=== PATIENT | male | born 1935 | race Caucasian/White ===

== ENCOUNTER → 2017-02-16 | Outpatient (REF) | payer MEDICARE ==
[~2017-02-16] MED LIST: AMLO10TA2 PO; ASPI1TAB PO; ATEN25TA PO; ATOR40TA PO; CARD2TAB PO; DIOV320T6 PO; K-TA10TA2 PO; METACAP3 PO; METF500T PO; OMEP40CA2 PO; PIOG15TA3 PO; VITA100072 PO
[2017-02-16 12:02] LABS: ALT/SGPT 38 U/L (12-78); ANION GAP 5 MEQ/L (8-16); BLOOD UREA NITROGEN 18 MG/DL (7-18); CALCIUM LEVEL 9.7 MG/DL (8.8-10.2); CARBON DIOXIDE LEVEL 32 MEQ/L (21-32); CHLORIDE LEVEL 104 MEQ/L (98-107); CREATININE FOR GFR 0.98 MG/DL (0.70-1.30); GLOMERULAR FILTRATION RATE > 60.0 (>35); GLUCOSE, FASTING 123 MG/DL (83-110); POTASSIUM SERUM 3.7 MEQ/L (3.5-5.1); SODIUM LEVEL 141 MEQ/L (136-145)
== END ==
LOC: M SFHCCLAY 08:43
PROVIDERS: ATTEND Family Medicine
DX: E11.9 Type 2 diabetes mellitus without complications (principal); I10 Essential (primary) hypertension; E78.2 Mixed hyperlipidemia

== ENCOUNTER → 2017-02-23 | Outpatient (CLI) | payer MEDICARE ==
[~2017-02-23] VITALS: Ht 177.8 cm; Wt 72.6 kg
[~2017-02-23] MED LIST changes: +LIDOCAINE 2% INJ 100 MG/5 ML SDV (FOR ANES.) As Ordered ONE; +NS 1,000 ML IV ONE; +PROPOFOL 200 MG/20 ML VIAL As Ordered ONE
--- NOTE | 2017-02-23 08:01 | ROOR ---
Patient Name: Jorden Mccloud Procedure Date: 02/23/2017 7:32 AM Date of : 1935 Age: 82 Room: [facility] Gender: Male Note Status: Finalized Procedure: Colonoscopy Indications: High risk colon cancer surveillance: Personal history of colonic polyps, Surveillance: Personal history of piecemeal removal of adenoma on last colonoscopy (less than 1 year ago) Providers: Phillip SMALLWOOD MD Referring MD: Reed Barragan MD Requesting Provider: Medicines: Monitored Anesthesia Care Complications: No immediate complications. Procedure: Pre-Anesthesia Assessment: - The heart rate, respiratory rate, oxygen saturations, blood pressure, adequacy of pulmonary ventilation, and response to care were monitored throughout the procedure. The Colonoscope was introduced through the anus and advanced to the cecum, identified by appendiceal orifice and ileocecal valve. The colonoscopy was performed without difficulty. The patient tolerated the procedure well. The quality of the bowel preparation was fair. Findings: The perianal and digital rectal examinations were normal. (EXAM: Complete, PREP: Fair/Adequate) A 4 mm polyp was found in the ileocecal valve. The polyp was sessile. The polyp was removed with a cold snare. Resection and retrieval were complete. A tattoo was seen at the splenic flexure. A post-polypectomy scar was found at the tattoo site. There was no evidence of residual polyp tissue. Multiple medium-mouthed diverticula were found in the sigmoid colon and descending colon. The exam was otherwise without abnormality on direct and retroflexion views. Impression: - Preparation of the colon was fair. - One 4 mm polyp at the ileocecal valve, removed with a cold snare. Resected and retrieved. - A tattoo was seen at the splenic flexure. A post-polypectomy scar was found at the tattoo site. There was no evidence of residual polyp tissue. - Moderate diverticulosis in the sigmoid colon and in the descending colon. - The examination was otherwise normal on direct and retroflexion views. Recommendation: - Repeat colonoscopy in 3 years for surveillance. Phillip Smallwood MD Phillip SMALLWOOD MD 02/23/2017 8:01:15 AM This report has been signed electronically. Number of Addenda: 0 Note Initiated On: 02/23/2017 7:32 AM Estimated Blood Loss: Estimated blood loss: none.
[2017-02-23 08:20] VITALS: BP 110/65
== END ==
LOC: M OPP 06:34
PROVIDERS: ATTEND Internal Medicine Gastroenterology
DX: Z86.010 Personal history of colon polyps (principal); D12.0 Benign neoplasm of cecum; K57.30 Diverticulosis of large intestine without perforation or abscess without bleeding; I10 Essential (primary) hypertension; E11.9 Type 2 diabetes mellitus without complications; E87.5 Hyperkalemia; R60.9 Edema, unspecified; R12 Heartburn; Z79.82 Long term (current) use of aspirin; Z79.84 Long term (current) use of oral hypoglycemic drugs; Z79.899 Other long term (current) drug therapy

== ENCOUNTER → 2018-02-13 | Outpatient (CLI) | payer MEDICARE | LOC: M RAD 16:39 | DX: R41.3 Other amnesia (principal); Z91.81 History of falling; I67.82 Cerebral ischemia | CPT/HCPCS: 70450 ==

== ENCOUNTER → 2018-02-21 | Outpatient (REF) | payer MEDICARE ==
[2018-02-21 12:14] LABS: VITAMIN B12 LEVEL > 2000 PG/ML (247-911)
[2018-02-21 12:28] LABS: ALBUMIN 3.7 GM/DL (3.2-5.2); ALBUMIN/GLOBULIN RATIO 1.19 (1.00-1.93); ALKALINE PHOSPHATASE 82 U/L (45-117); ALT/SGPT 38 U/L (12-78); ANION GAP 11 MEQ/L (8-16); AST/SGOT 28 U/L (7-37); BILIRUBIN,TOTAL 0.6 MG/DL (0.2-1.0); BLOOD UREA NITROGEN 18 MG/DL (7-18); CALCIUM LEVEL 9.1 MG/DL (8.8-10.2); CARBON DIOXIDE LEVEL 28 MEQ/L (21-32); CHLORIDE LEVEL 104 MEQ/L (98-107); GLOMERULAR FILTRATION RATE > 60.0 (>35); GLUCOSE, FASTING 142 MG/DL (70-100); POTASSIUM SERUM 3.4 MEQ/L (3.5-5.1); SODIUM LEVEL 143 MEQ/L (136-145); TOTAL PROTEIN 6.8 GM/DL (6.4-8.2)
[2018-02-21 12:41] LABS: ERYTHROCYTE SEDIMENTATION RATE 35 mm/hr (0-20)
[2018-02-21 12:52] LABS: CREATININE, URINE 76.1 MG/DL; MALB URINE SIEMENS 8.6 MG/L; MAU/CREAT RATIO 11.3 MCG/MG (0.0-30.0)
[2018-02-21 13:42] LABS: ESTIMATED AVERAGE GLUCOSE 148 MG/DL (60-110); HEMOGLOBIN A1c 6.8 %
== END ==
LOC: M SFHCCLAY 08:16
DX: F03.90 Unspecified dementia, unspecified severity, without behavioral disturbance, psychotic disturbance, mood disturbance, and anxiety (principal); I10 Essential (primary) hypertension; E11.42 Type 2 diabetes mellitus with diabetic polyneuropathy
CPT/HCPCS: 84443

== ENCOUNTER → 2018-04-25 | Outpatient (REF) | payer MEDICARE ==
[2018-04-25 18:50] LABS: CREATININE, URINE 92.1 MG/DL; MALB URINE SIEMENS 7.5 MG/L; MAU/CREAT RATIO 8.1 MCG/MG (0.0-30.0)
== END ==
LOC: M SFHCCLAY 11:15
DX: E11.9 Type 2 diabetes mellitus without complications (principal); Z23 Encounter for immunization
CPT/HCPCS: 82043

== ENCOUNTER → 2019-01-04 | Outpatient (REF) | payer MEDICARE ==
[~2019-01-04] MED LIST changes: -AMLO10TA2 PO; +AMLO10TA5 PO; -ASPI1TAB PO; +ASPI81TA26 PO; -ATOR40TA PO; +ATOR40TA75 PO; -LIDOCAINE 2% INJ 100 MG/5 ML SDV (FOR ANES.) As Ordered ONE; -METF500T PO; +METF500T13 PO; -NS 1,000 ML IV ONE; -PIOG15TA3 PO; +PIOG1TAB36 PO; -PROPOFOL 200 MG/20 ML VIAL As Ordered ONE; +VITA100018 PO; -VITA100072 PO
[2019-01-04 12:33] LABS: BASO % 0.7 % (0.0-1.0); EOS # 0.1 10^3/uL (0.0-0.50); HEMATOCRIT 37.2 % (42.0-52.0); HEMOGLOBIN 12.2 g/dl (13.5-17.5); LYMPH # 2.6 10^3/uL (1.5-4.5); LYMPH % 43.6 % (24.0-44.0); MEAN CORPUSCULAR HEMOGLOBIN 30.5 pg (27.0-33.0); MEAN CORPUSCULAR HGB CONC 32.8 g/dl (32.0-36.5); MONO # 0.5 10^3/uL (0.0-0.8); MONO % 7.8 % (0.0-5.0); NEUTROPHILS # 2.8 10^3/uL (1.8-7.7); NEUTROPHILS % 46.7 % (36.0-66.0); PLATELET COUNT, AUTOMATED 253 10^3/uL (150-450); WHITE BLOOD COUNT 6.1 10^3/uL (4.0-10.0)
[2019-01-04 12:48] LABS: ALBUMIN 3.7 GM/DL (3.2-5.2); ALT/SGPT 32 U/L (12-78); BILIRUBIN,TOTAL 0.9 MG/DL (0.2-1.0); BLOOD UREA NITROGEN 25 MG/DL (7-18); CARBON DIOXIDE LEVEL 29 MEQ/L (21-32); CHLORIDE LEVEL 106 MEQ/L (98-107); GLOMERULAR FILTRATION RATE > 60.0 (>35); GLUCOSE, FASTING 148 MG/DL (70-100); POTASSIUM SERUM 3.7 MEQ/L (3.5-5.1); RHEUMATOID FACTOR QUANT < 10.0 IU/ML (<15.0); SODIUM LEVEL 142 MEQ/L (136-145); TOTAL PROTEIN 6.6 GM/DL (6.4-8.2); VITAMIN B12 LEVEL > 2000 PG/ML
[2019-01-04 12:49] LABS: FOLATE > 24.0 NG/ML
[2019-01-04 13:28] LABS: ERYTHROCYTE SEDIMENTATION RATE 25 mm/hr (0-20)
[2019-01-08 10:13] LABS: PTT LUPUS TYPE ANTICOAG SCREEN 0.9 (0-1.2)
[2019-01-08 10:50] LABS: ALBUMIN % 61.6 % (55.8-66.1)
[2019-01-08 10:51] LABS: ALBUMIN 4.07 GM/DL (3.29-5.55); ALPHA-1-GLOBULIN % 4.7 % (2.9-4.9); ALPHA-1-GLOBULINS 0.31 GM/DL (0.17-0.41); ALPHA-2-GLOBULINS 0.83 GM/DL (0.42-0.99); ALPHA-2-GLOBULINS % 12.6 % (7.1-11.8); BETA-1-GLOBULINS 0.47 GM/DL (0.28-0.60); BETA-1-GLOBULINS % 7.1 % (4.7-7.2); BETA-2-GLOBULINS % 4.5 % (3.2-6.5); GAMMA GLOBULIN % 9.5 % (11.1-18.8); GAMMA GLOBULINS 0.63 GM/DL (0.65-1.58)
[2019-01-10 14:51] LABS: ANCA-ATYPICAL <1:20 titer (Neg:<1:20); ANTI DS-DNA AB <1:10 titer (.); ANTINUCLEAR ANTIBODIES DIRECT Negative (Negative); CYTOPLASMIC NEUTROP AB ANCA-C <1:20 titer (Neg:<1:20); PERINUCLEAR AB ANCA-P <1:20 titer (Neg:<1:20); SJOGREN'S ANTI SS-A <0.2 AI (0.0-0.9); SJOGREN'S ANTI SS-B <0.2 AI (0.0-0.9); VITAMIN B1 LEVEL WHOLE BLOOD 115.5 nmol/L (66.5-200.0); VITAMIN E(ALPHA TOCOPHEROL) 14.5 mg/L (9.0-29.0); VITAMIN E(GAMMA TOCOPHEROL) 2.8 mg/L (0.5-4.9)
== END ==
LOC: M LABDRAWC 11:39
PROVIDERS: ATTEND Psychiatry & Neurology Neurology
DX: F09 Unspecified mental disorder due to known physiological condition (principal)

== ENCOUNTER → 2019-01-25 | Outpatient (CLI) | payer MEDICARE ==
--- NOTE | 2019-01-26 06:47 | REP ---
HISTORY: Shoulder pain. COMPARISON: None. The humeral head is subluxed superiorly in the glenohumeral which narrows the subacromial space. There is no acute fracture or dislocation. IMPRESSION: Chronic changes as described above.
== END ==
LOC: M CLY 10:59
PROVIDERS: ATTEND Family Medicine
DX: Q68.8 Other specified congenital musculoskeletal deformities (principal)

== ENCOUNTER → 2019-03-27 | Outpatient (CLI) | payer MEDICARE ==
[~2019-03-27] MED LIST changes: +BICA50TA9 PO; +DONETAB6 PO; +HYDR50TAB PO; +KLOR10TA76 PO; +ROZE8TAB16 PO; +TRAZ-252 PO; +VITAD1000T PO
--- NOTE | 2019-03-27 18:35 | REP ---
MRI RIGHT SHOULDER: TECHNIQUE: Axial T2 fat sat, gradient echo, sagittal oblique T2 fat sat, coronal oblique T1, T2 fat sat. Study is limited due to extensive patient motion. Complete full thickness tears are seen of the supraspinatus and infraspinatus tendons with retraction of the musculotendinous junctions approximately 5 cm. There is associated muscular atrophy of the supraspinatus and infraspinatus. There are partial tears of the subscapularis and teres minor. There are mild hypertrophic degenerative changes of the acromioclavicular joint. Acromion appears to be type 2. Biceps tendon appears torn. It is not seen in the superior aspect of the bicipital groove. It is not seen inserting on to the superior labrum. There is no Hill Sach's deformity. The superior labrum appears diffusely truncated and torn. Otherwise no labral tear is seen. There is no occult fracture. There is a large joint effusion, with fluid extending into the subacromial subdeltoid bursae. There is moderate diffuse chondromalacia of the glenohumeral joint. IMPRESSION: Complete full thickness tears of the supraspinatus and infraspinatus tendons with retraction of the musculotendinous junction approximately 5 cm and associated muscular atrophy. Partial tears of the subscapularis and teres minor. Mild hypertrophic degenerative change of the acromioclavicular joint. Biceps tendon appears torn. Superior labrum appears diffusely truncated. Large joint effusion. Study was limited due to extensive patient motion. Electronically Signed by Adolph Wade MD 03/30/2019 06:33 P
== END ==
LOC: M RAD 13:07
PROVIDERS: ATTEND Orthopaedic Surgery Sports Medicine
DX: M25.511 Pain in right shoulder (principal)

== ENCOUNTER → 2019-04-19 | Outpatient (REF) | payer MEDICARE ==
[2019-04-19 17:07] LABS: ALBUMIN 3.9 GM/DL (3.2-5.2); ALT/SGPT 35 U/L (12-78); BILIRUBIN,TOTAL 0.8 MG/DL (0.2-1.0); BLOOD UREA NITROGEN 27 MG/DL (7-18); CALCIUM LEVEL 8.7 MG/DL (8.8-10.2); CARBON DIOXIDE LEVEL 29 MEQ/L (21-32); CHLORIDE LEVEL 105 MEQ/L (98-107); CHOLESTEROL LEVEL 149 MG/DL (<200); GLOMERULAR FILTRATION RATE > 60.0 (>35); GLUCOSE, FASTING 160 MG/DL (70-100); HDL CHOLESTEROL 56 MG/DL (>40); LDL CHOLESTEROL 57 MG/DL (<100); NON-HDL-C 93 MG/DL; POTASSIUM SERUM 3.7 MEQ/L (3.5-5.1); PROSTATIC SPECIFIC AG MONITOR 0.92 NG/ML (< 4.00); SODIUM LEVEL 141 MEQ/L (136-145); TOTAL PROTEIN 6.4 GM/DL (6.4-8.2); TRIGLYCERIDES LEVEL 180 MG/DL (<150)
[2019-04-19 17:20] LABS: HEMATOCRIT 35.4 % (42.0-52.0); HEMOGLOBIN 11.5 g/dl (13.5-17.5); MEAN CORPUSCULAR HGB CONC 32.5 g/dl (32.0-36.5); MEAN CORPUSCULAR VOLUME 95.4 fl (80.0-96.0); PLATELET COUNT, AUTOMATED 235 10^3/uL (150-450); RED BLOOD COUNT 3.71 10^6/uL (4.30-6.10)
== END ==
LOC: M SFHCCLAY 09:17
PROVIDERS: ATTEND Family Medicine
DX: E11.9 Type 2 diabetes mellitus without complications (principal); I10 Essential (primary) hypertension; E78.2 Mixed hyperlipidemia; C61 Malignant neoplasm of prostate

== ENCOUNTER → 2019-08-01 | Outpatient (REF) | payer MEDICARE ==
[~2019-08-01] MED LIST changes: +CHOL100029 PO; -OMEP40CA2 PO; +OMEP40CA97 PO; -VITAD1000T PO; +XTAN40CA PO
[2019-08-01 16:43] LABS: BLOOD UREA NITROGEN 20 MG/DL (7-18); CALCIUM LEVEL 9.5 MG/DL (8.8-10.2); CARBON DIOXIDE LEVEL 31 MEQ/L (21-32); CHLORIDE LEVEL 103 MEQ/L (98-107); CREATININE FOR GFR 0.89 MG/DL (0.70-1.30); GLOMERULAR FILTRATION RATE > 60.0 (>35); GLUCOSE, FASTING 83 MG/DL (70-100); POTASSIUM SERUM 3.3 MEQ/L (3.5-5.1); SODIUM LEVEL 142 MEQ/L (136-145)
[2019-08-01 17:17] LABS: HEMOGLOBIN A1c 6.8 %
== END ==
LOC: M SFHCCLAY 10:06
PROVIDERS: ATTEND Family Medicine
DX: I10 Essential (primary) hypertension (principal); E11.42 Type 2 diabetes mellitus with diabetic polyneuropathy
CPT/HCPCS: 80048; 83036; G0463

== ENCOUNTER → 2019-10-08 | Outpatient (REF) | payer MEDICARE ==
[2019-10-08 12:18] LABS: BASO % 0.6 % (0.0-1.0); EOS % 0.5 % (0.0-3.0); HEMATOCRIT 36.7 % (42.0-52.0); HEMOGLOBIN 11.2 g/dl (13.5-17.5); LYMPH % 30.2 % (24.0-44.0); MEAN CORPUSCULAR HGB CONC 30.5 g/dl (32.0-36.5); MEAN CORPUSCULAR VOLUME 98.4 fl (80.0-96.0); MONO # 0.5 10^3/uL (0.0-0.8); MONO % 8.3 % (0.0-5.0); NEUTROPHILS # 3.9 10^3/uL (1.5-8.5); NEUTROPHILS % 59.8 % (36.0-66.0); PLATELET COUNT, AUTOMATED 228 10^3/uL (150-450); RED BLOOD COUNT 3.73 10^6/uL (4.30-6.10); WHITE BLOOD COUNT 6.5 10^3/uL (4.0-10.0)
[2019-10-08 12:19] LABS: ALBUMIN 3.7 GM/DL (3.2-5.2); ALT/SGPT 30 U/L (12-78); BILIRUBIN,TOTAL 0.7 MG/DL (0.2-1.0); BLOOD UREA NITROGEN 27 MG/DL (7-18); CALCIUM LEVEL 9.1 MG/DL (8.8-10.2); CARBON DIOXIDE LEVEL 30 MEQ/L (21-32); CHLORIDE LEVEL 104 MEQ/L (98-107); CREATININE FOR GFR 1.07 MG/DL (0.70-1.30); GLOMERULAR FILTRATION RATE > 60.0 (>35); GLUCOSE, FASTING 192 MG/DL (70-100); POTASSIUM SERUM 4.2 MEQ/L (3.5-5.1); PROSTATIC SPECIFIC AG MONITOR 5.56 NG/ML (< 4.00); SODIUM LEVEL 141 MEQ/L (136-145); TOTAL PROTEIN 6.4 GM/DL (6.4-8.2)
== END ==
LOC: M LABDRAWC 11:34
PROVIDERS: ATTEND Internal Medicine Medical Oncology
DX: C61 Malignant neoplasm of prostate (principal)

== ENCOUNTER → 2019-11-12 | Outpatient (REF) | payer MEDICARE ==
[~2019-11-12] MED LIST changes: +CASO50TA5 PO; +D 10TAB2 PO; +MEMA10TA19 PO
[2019-11-12 18:09] LABS: HEMOGLOBIN A1c 5.9 %
== END ==
LOC: M SFHCCLAY 10:17
PROVIDERS: ATTEND Family Medicine
DX: E11.42 Type 2 diabetes mellitus with diabetic polyneuropathy (principal)
CPT/HCPCS: 83036; G0463

== ENCOUNTER → 2019-11-25 | Outpatient (CLI) | payer MEDICARE ==
--- NOTE | 2019-11-25 12:15 | REP ---
CHEST, TWO VIEWS: COMPARISON: 02/28/2013. There is no evidence of acute infiltrate. No pleural effusion is seen. The heart is normal in size. The mediastinal silhouette is unremarkable. The visualized osseous structures are intact. There is mild calcification of the thoracic aorta. There are degenerative changes of the spine. There is an old right 9th rib fracture again seen. IMPRESSION: No acute pulmonary disease. Electronically Signed by Adolph Wade MD 11/25/2019 06:06 P
== END ==
LOC: M CLY 11:31
PROVIDERS: ATTEND Physician Assistant
DX: J22 Unspecified acute lower respiratory infection (principal)
CPT/HCPCS: 71046; G0463

== ENCOUNTER → 2019-12-19 | Outpatient (REF) | payer MEDICARE ==
[2019-12-19 16:09] LABS: BASO % 0.6 % (0.0-1.0); EOS # 0.1 10^3/uL (0.0-0.5); EOS % 2.2 % (0.0-3.0); HEMATOCRIT 35.8 % (42.0-52.0); HEMOGLOBIN 11.6 g/dl (13.5-17.5); LYMPH # 2.3 10^3/uL (1.5-5.0); LYMPH % 36.8 % (24.0-44.0); MEAN CORPUSCULAR HEMOGLOBIN 30.7 pg (27.0-33.0); MEAN CORPUSCULAR HGB CONC 32.4 g/dl (32.0-36.5); MEAN CORPUSCULAR VOLUME 94.7 fl (80.0-96.0); MONO # 0.6 10^3/uL (0.0-0.8); MONO % 9.1 % (0.0-5.0); NEUTROPHILS # 3.2 10^3/uL (1.5-8.5); NEUTROPHILS % 50.8 % (36.0-66.0); PLATELET COUNT, AUTOMATED 242 10^3/uL (150-450); RED BLOOD COUNT 3.78 10^6/uL (4.30-6.10); WHITE BLOOD COUNT 6.2 10^3/uL (4.0-10.0)
[2019-12-19 16:18] LABS: ALBUMIN 3.7 GM/DL (3.2-5.2); ALT/SGPT 34 U/L (12-78); BILIRUBIN,TOTAL 0.6 MG/DL (0.2-1.0); BLOOD UREA NITROGEN 25 MG/DL (7-18); CALCIUM LEVEL 9.3 MG/DL (8.8-10.2); CARBON DIOXIDE LEVEL 30 MEQ/L (21-32); CHLORIDE LEVEL 105 MEQ/L (98-107); CREATININE FOR GFR 0.98 MG/DL (0.70-1.30); GLOMERULAR FILTRATION RATE > 60.0 (>35); GLUCOSE, FASTING 126 MG/DL (70-100); POTASSIUM SERUM 3.7 MEQ/L (3.5-5.1); SODIUM LEVEL 142 MEQ/L (136-145); TOTAL PROTEIN 6.9 GM/DL (6.4-8.2)
[2019-12-19 16:34] LABS: TESTOSTERONE 12 NG/DL (241-827)
== END ==
LOC: M LABDRAWC 15:57
PROVIDERS: ATTEND Internal Medicine Medical Oncology
DX: C61 Malignant neoplasm of prostate (principal)

== ENCOUNTER → 2020-02-20 | Outpatient (REF) | payer MEDICARE | LOC: M SFHCCLAY 11:02 | PROVIDERS: ATTEND Family Medicine | DX: C61 Malignant neoplasm of prostate (principal) | CPT/HCPCS: 84153; G0463 ==

== ENCOUNTER → 2020-03-11 | Outpatient (REF) | payer MEDICARE ==
[2020-03-11 11:39] LABS: BLOOD UREA NITROGEN 24 MG/DL (7-18); CALCIUM LEVEL 8.9 MG/DL (8.8-10.2); CARBON DIOXIDE LEVEL 28 MEQ/L (21-32); CHLORIDE LEVEL 108 MEQ/L (98-107); CREATININE FOR GFR 1.15 MG/DL (0.70-1.30); GLOMERULAR FILTRATION RATE > 60.0 (>35); GLUCOSE, FASTING 127 MG/DL (70-100); POTASSIUM SERUM 3.4 MEQ/L (3.5-5.1); SODIUM LEVEL 144 MEQ/L (136-145)
[2020-03-11 11:40] LABS: HEMATOCRIT 33.5 % (42.0-52.0); MEAN CORPUSCULAR HEMOGLOBIN 30.6 pg (27.0-33.0); MEAN CORPUSCULAR HGB CONC 32.8 g/dl (32.0-36.5); MEAN CORPUSCULAR VOLUME 93.3 fl (80.0-96.0); PLATELET COUNT, AUTOMATED 208 10^3/uL (150-450); RED BLOOD COUNT 3.59 10^6/uL (4.30-6.10); WHITE BLOOD COUNT 4.6 10^3/uL (4.0-10.0)
[2020-03-11 15:22] LABS: HEMOGLOBIN A1c 6.6 %
== END ==
LOC: M SFHCCLAY 07:38
PROVIDERS: ATTEND Family Medicine
DX: E11.9 Type 2 diabetes mellitus without complications (principal)

== ENCOUNTER → 2020-03-17 | Outpatient (REF) | payer MEDICARE ==
[~2020-03-17] MED LIST changes: -AMLO10TA5 PO; +AMLO1TAB25 PO
[2020-03-17 11:35] LABS: BASO % 0.6 % (0.0-1.0); EOS % 0.8 % (0.0-3.0); HEMATOCRIT 35.4 % (42.0-52.0); HEMOGLOBIN 11.5 g/dl (13.5-17.5); LYMPH # 1.3 10^3/uL (1.5-5.0); LYMPH % 24.7 % (24.0-44.0); MEAN CORPUSCULAR HEMOGLOBIN 30.7 pg (27.0-33.0); MEAN CORPUSCULAR HGB CONC 32.5 g/dl (32.0-36.5); MEAN CORPUSCULAR VOLUME 94.7 fl (80.0-96.0); MONO # 0.5 10^3/uL (0.0-0.8); MONO % 10.3 % (0.0-5.0); NEUTROPHILS # 3.2 10^3/uL (1.5-8.5); NEUTROPHILS % 63.2 % (36.0-66.0); PLATELET COUNT, AUTOMATED 230 10^3/uL (150-450); RED BLOOD COUNT 3.74 10^6/uL (4.30-6.10); WHITE BLOOD COUNT 5.1 10^3/uL (4.0-10.0)
[2020-03-17 11:51] LABS: ALBUMIN 3.8 GM/DL (3.2-5.2); ALT/SGPT 35 U/L (12-78); BILIRUBIN,TOTAL 0.7 MG/DL (0.2-1.0); BLOOD UREA NITROGEN 22 MG/DL (7-18); CALCIUM LEVEL 8.4 MG/DL (8.8-10.2); CARBON DIOXIDE LEVEL 28 MEQ/L (21-32); CHLORIDE LEVEL 107 MEQ/L (98-107); CREATININE FOR GFR 1.14 MG/DL (0.70-1.30); GLOMERULAR FILTRATION RATE > 60.0 (>35); GLUCOSE, FASTING 119 MG/DL (70-100); POTASSIUM SERUM 3.7 MEQ/L (3.5-5.1); SODIUM LEVEL 139 MEQ/L (136-145); TOTAL PROTEIN 6.8 GM/DL (6.4-8.2)
== END ==
LOC: M LABDRAWC 11:08
PROVIDERS: ATTEND Internal Medicine Medical Oncology
DX: R97.20 Elevated prostate specific antigen [PSA] (principal)

== ENCOUNTER → 2020-04-28 | Outpatient (REF) | payer MEDICARE | LOC: M LAB REF 19:18 | PROVIDERS: ATTEND Dermatology | DX: D04.30 Carcinoma in situ of skin of unspecified part of face (principal) ==

== ENCOUNTER → 2020-05-19 | Outpatient (REF) | payer MEDICARE ==
[2020-05-19 16:55] LABS: HEMATOCRIT 35.5 % (42.0-52.0); HEMOGLOBIN 11.4 g/dl (13.5-17.5); MEAN CORPUSCULAR HEMOGLOBIN 30.3 pg (27.0-33.0); MEAN CORPUSCULAR HGB CONC 32.1 g/dl (32.0-36.5); MEAN CORPUSCULAR VOLUME 94.4 fl (80.0-96.0); PLATELET COUNT, AUTOMATED 225 10^3/uL (150-450); RED BLOOD COUNT 3.76 10^6/uL (4.30-6.10)
[2020-05-19 18:01] LABS: ALBUMIN 3.9 GM/DL (3.2-5.2); ALT/SGPT 35 U/L (12-78); BILIRUBIN,TOTAL 0.6 MG/DL (0.2-1.0); BLOOD UREA NITROGEN 20 MG/DL (7-18); CALCIUM LEVEL 9.9 MG/DL (8.8-10.2); CARBON DIOXIDE LEVEL 30 MEQ/L (21-32); CHLORIDE LEVEL 104 MEQ/L (98-107); CREATININE FOR GFR 1.09 MG/DL (0.70-1.30); GLOMERULAR FILTRATION RATE > 60.0 (>35); GLUCOSE, FASTING 120 MG/DL (70-100); SODIUM LEVEL 139 MEQ/L (136-145); TOTAL PROTEIN 6.9 GM/DL (6.4-8.2)
[2020-05-19 18:55] LABS: HEMOGLOBIN A1c 6.1 %
== END ==
LOC: M LABDRAWC 08:35
PROVIDERS: ATTEND Family Medicine
DX: E11.9 Type 2 diabetes mellitus without complications (principal); I10 Essential (primary) hypertension; C79.51 Secondary malignant neoplasm of bone
CPT/HCPCS: 36415; 80053; 83036; 84153; 84443; 85027; G0463

== ENCOUNTER → 2020-05-22 | Outpatient (REF) | payer MEDICARE | LOC: M LAB REF 16:22 | PROVIDERS: ATTEND Dermatology | DX: L90.5 Scar conditions and fibrosis of skin (principal) ==

== ENCOUNTER → 2020-08-21 | Outpatient (REF) | payer MEDICARE ==
[2020-08-21 11:57] LABS: BASO % 0.4 % (0.0-1.0); EOS # 0.1 10^3/uL (0.0-0.5); EOS % 1.3 % (0.0-3.0); HEMATOCRIT 37.6 % (42.0-52.0); HEMOGLOBIN 11.9 g/dl (13.5-17.5); LYMPH # 1.8 10^3/uL (1.5-5.0); LYMPH % 34.3 % (24.0-44.0); MEAN CORPUSCULAR HEMOGLOBIN 30.4 pg (27.0-33.0); MEAN CORPUSCULAR HGB CONC 31.6 g/dl (32.0-36.5); MEAN CORPUSCULAR VOLUME 96.2 fl (80.0-96.0); MONO # 0.5 10^3/uL (0.0-0.8); MONO % 9.7 % (0.0-5.0); NEUTROPHILS # 2.9 10^3/uL (1.5-8.5); NEUTROPHILS % 53.9 % (36.0-66.0); PLATELET COUNT, AUTOMATED 219 10^3/uL (150-450); RED BLOOD COUNT 3.91 10^6/uL (4.30-6.10); WHITE BLOOD COUNT 5.4 10^3/uL (4.0-10.0)
[2020-08-21 12:27] LABS: ALBUMIN 3.4 GM/DL (3.2-5.2); ALT/SGPT 28 U/L (12-78); BILIRUBIN,TOTAL 0.8 MG/DL (0.2-1.0); BLOOD UREA NITROGEN 19 MG/DL (7-18); CALCIUM LEVEL 8.8 MG/DL (8.8-10.2); CARBON DIOXIDE LEVEL 30 MEQ/L (21-32); CHLORIDE LEVEL 105 MEQ/L (98-107); CREATININE FOR GFR 0.85 MG/DL (0.70-1.30); GLOMERULAR FILTRATION RATE > 60.0 (>35); GLUCOSE, FASTING 142 MG/DL (70-100); POTASSIUM SERUM 3.7 MEQ/L (3.5-5.1); PROSTATIC SPECIFIC AG MONITOR 4.97 NG/ML (< 4.00); SODIUM LEVEL 140 MEQ/L (136-145); TOTAL PROTEIN 6.4 GM/DL (6.4-8.2)
== END ==
LOC: M LABDRAWC 11:21
PROVIDERS: ATTEND Specialist
DX: C61 Malignant neoplasm of prostate (principal); C79.51 Secondary malignant neoplasm of bone

== ENCOUNTER → 2020-09-08 | Outpatient (CLI) | payer SELFPAY | LOC: M LABSMTC 13:43 | PROVIDERS: ATTEND Pediatrics | DX: Z20.828 Contact with and (suspected) exposure to other viral communicable diseases (principal) ==

== ENCOUNTER → 2020-11-13 | Outpatient (REF) | payer MEDICARE ==
[2020-11-13 11:47] LABS: HEMOGLOBIN A1c 5.6 %
== END ==
LOC: M SFHCCLAY 08:11
PROVIDERS: ATTEND Family Medicine
DX: E11.42 Type 2 diabetes mellitus with diabetic polyneuropathy (principal)

== ENCOUNTER → 2021-04-21 | Outpatient (REF) | payer MEDICARE ==
[~2021-04-21] MED LIST changes: +FLOM0.4C39 PO; +GLYCCAP PO; +LOSA100T50 PO; +LUPR45IN IM; +NOXI1TAB PO; +OMEP40CA4 PO; -OMEP40CA97 PO
[2021-04-21 12:23] LABS: BLOOD UREA NITROGEN 30 MG/DL (7-18); CALCIUM LEVEL 9.2 MG/DL (8.8-10.2); CARBON DIOXIDE LEVEL 30 MEQ/L (21-32); CHLORIDE LEVEL 105 MEQ/L (98-107); CREATININE FOR GFR 1.13 MG/DL (0.70-1.30); GLOMERULAR FILTRATION RATE > 60.0 (>35); GLUCOSE, FASTING 121 MG/DL (70-100); POTASSIUM SERUM 3.9 MEQ/L (3.5-5.1); SODIUM LEVEL 141 MEQ/L (136-145)
== END ==
LOC: M SFHCCLAY 07:29
PROVIDERS: ATTEND Family Medicine
DX: I10 Essential (primary) hypertension (principal)

== ENCOUNTER → 2021-05-06 | Outpatient (REF) | payer MEDICARE ==
[2021-05-06 12:08] LABS: BASO % 0.5 % (0.0-1.0); EOS # 0.1 10^3/uL (0.0-0.5); EOS % 1.7 % (0.0-3.0); HEMATOCRIT 38.1 % (42.0-52.0); HEMOGLOBIN 12.3 g/dl (13.5-17.5); LYMPH # 2.6 10^3/uL (1.5-5.0); LYMPH % 43.6 % (24.0-44.0); MEAN CORPUSCULAR HEMOGLOBIN 31.5 pg (27.0-33.0); MEAN CORPUSCULAR HGB CONC 32.3 g/dl (32.0-36.5); MEAN CORPUSCULAR VOLUME 97.4 fl (80.0-96.0); MONO # 0.5 10^3/uL (0.0-0.8); MONO % 8.5 % (2.0-8.0); NEUTROPHILS # 2.7 10^3/uL (1.5-8.5); NEUTROPHILS % 45.2 % (36.0-66.0); PLATELET COUNT, AUTOMATED 236 10^3/uL (150-450); RED BLOOD COUNT 3.91 10^6/uL (4.30-6.10)
[2021-05-06 12:42] LABS: ALBUMIN 3.3 GM/DL (3.2-5.2); ALT/SGPT 29 U/L (12-78); BLOOD UREA NITROGEN 33 MG/DL (7-18); CALCIUM LEVEL 9.2 MG/DL (8.8-10.2); CARBON DIOXIDE LEVEL 28 MEQ/L (21-32); CHLORIDE LEVEL 106 MEQ/L (98-107); GLOMERULAR FILTRATION RATE > 60.0 (>35); GLUCOSE, FASTING 122 MG/DL (70-100); POTASSIUM SERUM 3.9 MEQ/L (3.5-5.1); SODIUM LEVEL 140 MEQ/L (136-145); TOTAL PROTEIN 6.6 GM/DL (6.4-8.2)
== END ==
LOC: M LABDRAWC 11:22
PROVIDERS: ATTEND Specialist
DX: C61 Malignant neoplasm of prostate (principal)

== ENCOUNTER → 2021-05-06 | Outpatient (REF) | payer MEDICARE ==
[2021-05-06 12:33] LABS: BLOOD UREA NITROGEN 33 MG/DL (7-18); CALCIUM LEVEL 9.5 MG/DL (8.8-10.2); CARBON DIOXIDE LEVEL 27 MEQ/L (21-32); CHLORIDE LEVEL 107 MEQ/L (98-107); CREATININE FOR GFR 1.03 MG/DL (0.70-1.30); GLOMERULAR FILTRATION RATE > 60.0 (>35); GLUCOSE, FASTING 124 MG/DL (70-100); POTASSIUM SERUM 3.8 MEQ/L (3.5-5.1); SODIUM LEVEL 141 MEQ/L (136-145)
[2021-05-06 17:31] LABS: HEMOGLOBIN A1c 6.3 %
== END ==
LOC: M SFHCCLAY 08:06
PROVIDERS: ATTEND Family Medicine
DX: I10 Essential (primary) hypertension (principal); E11.42 Type 2 diabetes mellitus with diabetic polyneuropathy

== ENCOUNTER → 2021-07-08 | Outpatient (CLI) | payer MEDICARE ==
[~2021-07-08] MED LIST changes: +FURO20TA2; -KLOR10TA76 PO; +LOPE1TAB PO; +MIRT-62; +OXYC1TAB23 PO; +POTA-136 PO; +PRED5EL PO; +PRED5TA PO; +SPIR1TAB34; +ZYTI250T PO
--- NOTE | 2021-07-08 19:36 | REPVR ---
PROCEDURE INFORMATION: Exam: MR Thoracic Spine Without and With Contrast Exam date and time: 07/08/2021 4:45 PM Age: 86 years old Clinical indication: Condition or disease; Other: Prostate CA; Additional info: Prostate cancer TECHNIQUE: Imaging protocol: Multiplanar magnetic resonance images of the thoracic spine without and with contrast. Contrast material: PROHANCE; Contrast volume: 6 ml; Contrast route: INTRAVENOUS (IV); COMPARISON: CR CHEST 2 VIEW 11/25/2019 11:37 AM FINDINGS: Diffusely scattered enhancing lesions though predominantly sclerotic lesions throughout the visualized bones, compatible with diffuse osseous metastatic disease. Thoracic vertebral body heights are intact. No cord compression. No abnormal cord signal. Thoracic kyphosis is preserved. Thoracic disc space heights are unremarkable. Soft tissues are unremarkable. IMPRESSION: Diffuse osseous metastatic disease. Electronically signed by: Jarocho De On 07/08/2021 19:35:57 PM
--- NOTE | 2021-07-08 19:39 | REPVR ---
PROCEDURE INFORMATION: Exam: MR Lumbar Spine Without and With Contrast Exam date and time: 07/08/2021 4:44 PM Age: 86 years old Clinical indication: Condition or disease; Other: Prostate CA; Additional info: Prostate CA w/ back pain ? mets TECHNIQUE: Imaging protocol: Multiplanar magnetic resonance images of the lumbar spine without and with intravenous contrast. Contrast material: PROHANCE; Contrast volume: 6 ml; Contrast route: INTRAVENOUS (IV); COMPARISON: No relevant prior studies available. FINDINGS: Diffusely scattered enhancing lesions though predominantly sclerotic lesions throughout the visualized bones, compatible with diffuse osseous metastatic disease. Lumbar vertebral body heights are intact. 0.8 cm grade 1 anterolisthesis of L5 on S1. No cord compression. No abnormal cord signal. Conus medullaris terminates at the L1 level. Paravertebral soft tissues are unremarkable. Left-sided extrarenal pelvis versus hydronephrosis. L1-L2: Slight broad-based disc bulge without significant canal or foraminal narrowing. L2-L3: No significant canal or foraminal narrowing. L3-L4: Facet hypertrophy and right lateral disc protrusion cause mild to moderate right foraminal narrowing. Mild canal narrowing. L4-L5: Facet hypertrophy causes mild left foraminal narrowing. No significant canal narrowing. L5-S1: Anterolisthesis causes mild bilateral foraminal narrowing. No significant canal narrowing. IMPRESSION: 1. Diffuse osseous metastatic disease. 2. Spondylotic changes of the lumbar spine, as above. 3. Left-sided extrarenal pelvis versus hydronephrosis. Correlate with dedicated renal imaging. Electronically signed by: Jarocho De On 07/08/2021 19:39:03 PM
== END ==
LOC: M RAD 15:41
PROVIDERS: ATTEND Specialist
DX: C79.51 Secondary malignant neoplasm of bone (principal); M54.89 Other dorsalgia; C61 Malignant neoplasm of prostate

== ENCOUNTER → 2021-07-20 | Outpatient (CLI) | payer MEDICARE ==
[~2021-07-20] MED LIST changes: +OXYC-517 PO; +OXYC1CAP PO
--- NOTE | 2021-07-20 10:11 | REP ---
INDICATION: HYDROURETER. COMPARISON: None. TECHNIQUE: Real-time sonographic evaluation of the kidneys with Doppler FINDINGS: Multiple ultrasonographic images of the right kidney show the right kidney to measure 10.3 x 5.2 x 4.6 cm. The renal cortical echotexture is unremarkable. There is marked renal cortical thinning. There are no masses. There is good corticomedullary differentiation. There is no hydronephrosis. There are no perinephric fluid collections. Multiple ultrasonographic images of the left kidney show the left kidney to measure 11.7 x 5.8 x 5.6 cm. The renal cortical echotexture is unremarkable. There is marked renal cortical thinning. There are no masses. There is good corticomedullary differentiation. There is moderate hydronephrosis. There are no perinephric fluid collections. When scanning the right kidney numerous focal hypo echogenic foci are seen throughout the imaged portion of the liver. IMPRESSION: 1. Likely bilateral age-related renal cortical atrophic change. Medical renal disease cannot be ruled out. 2. There is moderate left-sided hydronephrosis. 3. Abnormal appearing liver. The finding suggests hepatic metastasis. This should be correlated clinically with appropriate follow-up. <Electronically signed by Enrrique Urban > 07/20/21 1007
== END ==
LOC: M RAD 08:08
PROVIDERS: ATTEND Family Medicine
DX: N13.4 Hydroureter (principal)

== ENCOUNTER → 2021-07-20 | Outpatient (CLI) | payer MEDICARE ==
[2021-07-20 15:54] LABS: BASO % 0.3 % (0.0-1.0); EOS % 0.3 % (0.0-3.0); HEMATOCRIT 32.8 % (42.0-52.0); HEMOGLOBIN 10.6 g/dl (13.5-17.5); LYMPH % 25.2 % (24.0-44.0); MEAN CORPUSCULAR HEMOGLOBIN 31.7 pg (27.0-33.0); MEAN CORPUSCULAR HGB CONC 32.3 g/dl (32.0-36.5); MEAN CORPUSCULAR VOLUME 98.2 fl (80.0-96.0); MONO # 0.6 10^3/uL (0.0-0.8); MONO % 7.5 % (2.0-8.0); NEUTROPHILS # 5.1 10^3/uL (1.5-8.5); NEUTROPHILS % 65.8 % (36.0-66.0); PLATELET COUNT, AUTOMATED 153 10^3/uL (150-450); RED BLOOD COUNT 3.34 10^6/uL (4.30-6.10); WHITE BLOOD COUNT 7.8 10^3/uL (4.0-10.0)
--- NOTE | 2021-07-20 15:58 | RADONC.CN ---
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 He has progressed through multiple lines of androgen manipulation and is seen today for consideration of xofigo due to continued PSA progression on zytiga. Diagnosis/Treatment History Oncologic History Per Dr. Bettencourt's recent note: Current diagnosis: Castrate sensitive bone metastatic prostate cancer on single agent leuprolide. Rising and falling PSA.. Progressive dementia Treatment history: 2006 diagnosis of prostate cancer treated with EBRT. [place] 3+4=7; PSA 6.5, 1 year leuprolide to adjuvant treatment PSA decreased to 0.[address] until 2011. 2011 PSA to 5.6; biopsy negative, bone scan, CTs negative. Leuprolide resumed 2011, PSA goes from 5.6 to 0.1. Rising PSA [id number]. 2019 low back pain, MRI bone scan CT with skeletal metastases. No lymphadenopathy. PSA 0.13 on 06/28/2018; two bone marrow biopsies inconclusive. Leuprolide continued. 11/12/2018 PSA 0.715. 11/19/2018 seen at [facility], Dr. Coppola who recommended continue Lupron. 09/26/2018 evaluation at [facility] in [place]. Recommendation was to continue current therapy follow PSA, if evidence of castrate resistant consider total androgen blockade with either Casodex, Xtandi, or Zytiga. Dr. Jaden Woods was the attending at [facility]. He recommended the patient has followup with the dentist Dr. Block for potential tooth extraction. This could be followed by start of Xgeva and continue followup with Dr. Graf of urology for Lupron. 10/03/2018 DEXA with normal T-scores. 01/17/2019 MRI of lumbar spine without contrast, [facility] showed scattered metastatic lesions also seen on prior MRI of April 2018 which were much less conspicuous on current exam presumably responding to therapy. Severe osteoarthritic changes at L5-S1, severe foraminal narrowing bilaterally at S1, also a unilateral pars defect on the left. MRI of spine from cervical down to lumbar 04/21/2020. Extensive involvement with metastatic prostate carcinoma. Progression compared to MRI done on 03/25/2019 started on Xtandi in May 2020 because of a rising PSA and Casodex was stopped. Lupron and denosumab were started in May 2020. PSA went down from 14.6-->3.96. PSA is 4.86 as of 02/10/2021. Xgeva every 3 months start in February 2021. PSA has increased to 15.80 from 4.86 as of 05/10/2021, Zytiga was started. Interval History Jorden is here with his supportive son. Jorden has dementia but still attends to [employer]. He has pain in the back, aching constant. Responds to oxycodone. Also has neck pain and pain in his hands. Uses a walker for ambulation. Past Medical History: HTN DMII CKD HPL Dementia Past Surgical History: Skin cancer removals Family History: Mother unknown cancer Sister unknown cancer Social History: Never smoker Past drinker Allergies / Meds Allergies: Coded Allergies: No Known Allergies (Unverified , 02/19/19) Home Meds Active Scripts Oxycodone HCl (Oxycodone HCl) 5 Mg Tablet, 5 MG PO 4-6 hrs PRN for pain MDD 6 for 30 Days, #60 TAB Prov:LAUREN BETTENCOURT MD 07/19/21 Oxycodone HCl (Oxycodone Hydrochloride) 5 Mg Capsule, 5 MG PO Q4-6HP MDD 6 for 30 Days, #60 CAP Prov:LAUREN BETTENCOURT MD 07/16/21 Prednisone (Prednisone) 5 Mg Tablet, 1 TAB PO BID for 30 Days, #60 TAB 6 Refills Prov:LAUREN BETTENCOURT MD 05/10/21 Abiraterone Acetate (Zytiga) 250 Mg Tablet, 4 TAB PO DAILY for 30 Days, #120 TAB 6 Refills Prov:LAUREN BETTENCOURT MD 05/10/21 Potassium Chloride (Klor-Con M10) 10 Meq Tab.er.prt, 2 TAB PO BID for 30 Days, #30 TAB Prov:LAUREN BETTENCOURT MD 08/24/20 Enzalutamide (Xtandi) 40 Mg Capsule, 4 CAP PO DAILY for 30 Days, #120 CAP 11 Refills Prov:LAUREN BETTENCOURT MD 06/12/20 Bicalutamide (Casodex) 50 Mg Tablet, 1 TAB PO DAILY for 30 Days, #30 TAB 11 Refills Prov:Emmy,Belkis F. 10/22/19 Reported Medications Mirtazapine (Remeron) 15 Mg Tablet 05/10/21 Spironolact/Hydrochlorothiazid (Spironolactone-Hctz 25-25 Tab) 1 Each Tablet 05/10/21 Furosemide (Furosemide) 20 Mg Tablet 05/10/21 Loperamide HCl/Simethicone (Imodium Multi-Symptom Rel Cplt) 1 Each Tablet, 1 EACH PO, TAB 05/10/21 Losartan Potassium (Losartan Potassium) 100 Mg Tablet, 1 TAB PO DAILY for 30 Days, #30 TAB 02/10/21 Tamsulosin HCl (Flomax) 0.4 Mg Capsule, 1 CAP PO DAILY for 30 Days, #30 CAP 02/10/21 Enzalutamide (Xtandi) 40 Mg Capsule, 40 MG PO DAILY for 30 Days, #120 CAP 02/10/21 Vitamin D3/Folic Acid (Noxifol-D3 2,500 Unit-1 mg Tab) 2,500 Unit Tablet, 1 TAB PO DAILY for 30 Days, #30 TAB 02/10/21 Vit B12/Folic Acid/B6/Aa No.15 (Glycotrol Capsule) 1 Each Capsule, 1 CAP PO DAILY for 30 Days, #30 CAP 02/10/21 Leuprolide Acetate (Lupron Depot) 45 Mg Syringekit, 45 MG IM, INJ 02/10/21 Memantine HCl (Memantine HCl) 10 Mg Tablet, 10 MG PO DAILY for 30 Days, #30 TAB 10/22/19 Calcium No.1/D3/B6/FA/B12/Aloe (Vitamin D3-Aloe 1,000 Unit Tab) 1 Each Tablet, 1 TAB PO, TAB 10/22/19 Trazodone HCl (Trazodone HCl) 50 Mg Tablet, 1 TAB PO QPMP for 30 Days, #30 TAB 02/12/19 Bicalutamide (Bicalutamide) 50 Mg Tablet, 1 TAB PO DAILY for 30 Days, #30 TAB 02/12/19 Ramelteon (Rozerem) 8 Mg Tablet, 8 MG PO QPMP for 30 Days, #30 TAB 02/12/19 Donepezil Hcl (Donepezil HCl Odt) 10 Mg Tab.rapdis, 1 TAB PO DAILY for 30 Days, #30 TAB 02/12/19 Hydrochlorothiazide (Hydrochlorothiazide) 50 Mg Tablet, 1 TAB PO DAILY for 30 Days, #30 TAB 02/12/19 Levomefolate/B6/B12/Algal Oil (Metanx Capsule) 1 Cap Cap, 1 CAP PO DAILY, CAP 02/22/17 Cyanocobalamin (Vitamin B-12) (Vitamin B-12) 1,000 Mcg Tab, 1000 MCG PO Q2D, TAB 02/22/17 Pioglitazone HCl (Pioglitazone HCl) 15 Mg Tab, 15 MG PO, TAB 02/22/17 Atorvastatin Calcium (Atorvastatin Calcium) 40 Mg Tab, 40 MG PO DAILY, TAB 02/22/17 Amlodipine Besylate (Amlodipine Besylate) 10 Mg Tab, 10 MG PO DAILY, TAB 02/22/17 Metformin HCl (Metformin HCl) 500 Mg Tab, 500 MG PO BID, TAB 02/22/17 Atenolol (Atenolol) 25 Mg Tab, 25 MG PO DAILY, TAB 02/22/17 Omeprazole (Omeprazole) 40 Mg Cap, 40 MG PO DAILY, CAP 02/22/17 Discontinued Scripts Oxycodone HCl/Acetaminophen (Oxycodone-Acetaminophen 5-325) 1 Each Tablet, 1 TAB PO QIDP PRN for pain MDD 4 Tablet(s) for 5 Days, #20 TAB Prov:LAUREN BETTENCOURT MD 07/02/21 Review of Systems Constitutional: Denies: Fever, Fatigue, Weight Loss Eyes: Denies: Pain HEENT: Denies: Head Aches Pulmonary: Denies: Dyspnea Cardiovascular: Denies: Chest Pain Gastrointestinal: Denies: Abdominal Pain Genitourinary: Reports: Other Symptoms (Nocturia) Musculoskeletal: Reports: Neck pain, Back pain, Hand pain Neurological: Denies: Weakness, Numbness Psych: Reports: Mood Normal Vital Signs Ht 69" Wt 152 lbs BMI 22 P 69 RR 18 BP 114/67 O2 98% Pain 0 Fatigue 0 General Exam: Alert, Cooperative, No Acute Distress Eye Exam: PERRLA, EOMI ENT EXAM: Atraumatic Neck Exam: Supple Chest Exam: Clear to auscultation Heart Exam: Rate Normal Extremity Exam: Negative: Edema Skin Exam: Nl turgor and temperature Neuro Exam: Normal Gait, Normal Speech, Cranial Nerves 3-12 NL Psych Exam: Mental status NL Diagnostic and Laboratory Diagnostic Review Radiologic images, relevant labs and pathology reports were personally reviewed and discussed with Mr. Mccloud. Assessment and Plan Impression Mr. 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 He has progressed through multiple lines of androgen manipulation and is seen today for consideration of xofigo due to continued PSA progression on zytiga. Stage Prostate cancer [id number] [place] 3+4=7 PSA 6.5 stage IV Performance Status ECOG 2 Plan We had an extensive discussion with Mr. Mccloud regarding the diagnosis at hand and available therapeutic options. He has evidence of bone-only mCRPC with symptomatic lesions in the spine causing pain. I think he would candidate for xofigo. He seems to have adequate marrow reserve based on the most recent labs we have from April 2021. I explained that we would need to repeat CTs (without contrast due to CKD), bone scan (to prove blastic lesions), PSA, testosterone, alk phos, CBC and CMP. If these studies meet inclusion criteria per ALSYMPCA, then we can proceed with treatment. We discussed the logistics of receiving xofigo, 6 once-monthly cycles. He would discontinue zytiga before starting treatment. We discussed that preceding each cycle we would need to check to ensure blood counts are adequate. We reviewed the OS advantage conferred by xofigo as well as mitigation of pain and skeletal-related events. We reviewed the side effects of treatment including fatigue, mild nausea, pain flare, and cytopenias. After discussing the risks, benefits and alternatives to radiation therapy, Mr. Mccloud was amenable to pursuing xofigo. All questions were answered to the patient's satisfaction. We instructed the patient that if there were any questions,concerns or changes in clinical status in the interim to contact us. Recommendations Good candidate for xofigo Need CT CAP w/o contrast, bone scan, PSA, testosterone, CMP, CBC, alk phos to proceed Once above studies resulted will call patient and arrange first cycle Billing Statement Total time of [34] minutes was spent preparing for the visit [3], obtaining HPI [5], examining the patient [2], reviewing diagnostic tests [5], discussing management options [10], coordinating care [2], and writing this note [7]. ABDIRASHID BLAKELY MD Jul 20, 2021 15:58
[2021-07-20 18:10] LABS: ALT/SGPT 52 U/L (12-78); BILIRUBIN,TOTAL 0.8 MG/DL (0.2-1.0); BLOOD UREA NITROGEN 30 MG/DL (7-18); CALCIUM LEVEL 8.7 MG/DL (8.8-10.2); CARBON DIOXIDE LEVEL 29 MEQ/L (21-32); CHLORIDE LEVEL 104 MEQ/L (98-107); CREATININE FOR GFR 1.38 MG/DL (0.70-1.30); GLUCOSE, FASTING 141 MG/DL (70-100); POTASSIUM SERUM 3.7 MEQ/L (3.5-5.1); SODIUM LEVEL 140 MEQ/L (136-145); TOTAL PROTEIN 6.1 GM/DL (6.4-8.2)
[2021-07-20 18:30] LABS: TESTOSTERONE < 7 NG/DL (241-827)
== END ==
LOC: M ONCR 14:35
PROVIDERS: ATTEND General Practice
DX: C61 Malignant neoplasm of prostate (principal); F02.80 Dementia in other diseases classified elsewhere, unspecified severity, without behavioral disturbance, psychotic disturbance, mood disturbance, and anxiety; Z79.891 Long term (current) use of opiate analgesic
CPT/HCPCS: 36415; 76775; 80053; 84153; 84403; 85025; G0463

== ENCOUNTER → 2021-07-23 | Outpatient (CLI) | payer MEDICARE ==
--- NOTE | 2021-07-23 09:10 | REP ---
INDICATION: MALIGNANT NEOPLASM OF PROSTATE. COMPARISON: CXR 11/25/2019. TECHNIQUE: Noncontrast scanning through the chest with coronal and sagittal reconstructions. FINDINGS: Bone windows are reviewed for all slice levels. There are trace bilateral pleural effusions and minor dependent atelectatic changes posteriorly in the lower lung zones. Calcified granuloma laterally in the right lower lobe on image 57 and some minor apical pleuroparenchymal scarring left slightly greater than right noted. No pleural based mass, calcified pleural plaque, dense consolidation or parenchymal lung mass. No pneumothorax or pneumomediastinum. Heart is not enlarged there is coronary artery calcification. Atherosclerotic calcification of the aortic root, ascending arch and descending aorta noted. There is no pathologic sized mediastinal or hilar adenopathy. Small amount of fluid in the superior pericardial recess is seen pulmonary arteries are prominent centrally suggesting pulmonary artery hypertension, presumably on the basis of COPD. Small a moderate sized hiatal hernia. The bone windows show diffuse sclerotic metastatic bones throughout much of the cervical vertebral levels. The T12 vertebral body is diffusely sclerotic with other significant sclerotic areas at every one of the thoracic, lower cervical, upper lumbar levels, posterior elements of these bones, sternum and manubrium and scattered throughout ribs on both sides. There are also sclerotic areas in both scapulae, left greater than right, humeral heads and minimally in the left clavicle. No acute fractures or compression deformities noted. Please see the abdominal CT report this date for details of upper abdominal contents. The liver is grossly abnormal. IMPRESSION: 1. Diffuse and extensive sclerotic metastatic disease throughout the bones, worst in the the vertebral bodies in the thoracic spine but without compression deformity. Ribs, scapulae, sternum, manubrium, clavicles and humeral heads also involved to varying degrees. No fracture. This is almost certainly due to prostate carcinoma. 2. Some dependent basilar atelectatic change in trace effusions bilaterally. Lungs otherwise clear. 3. Heart not enlarged. No pericardial thickening or effusion, pathologic sized mediastinal adenopathy, hilar adenopathy or mediastinal mass. 4. Small a moderate sized hiatal hernia. 5. Coronary artery, aortic valve and aortic atherosclerotic calcifications. 6. Abnormal liver. See CT abdomen report this date. <Electronically signed by Jairo Cardona > 07/23/21 [id number]
--- NOTE | 2021-07-23 09:27 | REP ---
INDICATION: METASTATIC PROSTATE CA RESTAGING. COMPARISON: Renal ultrasound 07/20/2021, MRI lumbar spine 07/08/2021. TECHNIQUE: Noncontrast images abdomen and pelvis with coronal and sagittal reconstructions. FINDINGS: CT abdomen: Lung bases show trace effusions and some minor dependent atelectatic change. Heart not enlarged there is a small to moderate-sized hiatal hernia. The liver shows heterogeneous low-attenuation scattered throughout all lobes in those segments. This is similar to what is seen on ultrasound is notable for the largest lesion 4.4 cm. Most are in the 1-2 cm range. No biliary dilatation or adjacent ascites. Gallbladder shows dense bile versus noncalcified stone. Pancreas grossly unremarkable. There is diverticulum on the 2nd portion of the duodenum chest medial to the aorta. Small bowel loops otherwise unremarkable. Appendix is seen and normal. Colon shows scattered stool and gas without definite signs colitis or diverticulitis. No stricture or mass identified. Lung window review of all CT slices abdomen and pelvis shows no perforation or free air. There is atherosclerotic calcification of the aorta and branches without aneurysm. No periaortic, other retroperitoneal or mesenteric pathologic sized lymphadenopathy. Adrenal glands normal. The kidneys show some cortical atrophy and scarring with extrarenal pelvis on the left but ureter normal no renal or ureteral stone on either side. Exophytic cyst upper pole on the left about 2.1 cm. The bone windows show diffuse sclerotic metastatic lesions in the lumbar and lower thoracic spine greatest at L5 and T12 but with significant metastatic disease throughout vertebral bodies and scattered in the posterior elements. Few scattered sclerotic lesions in lower ribs are also noted. No compression deformity. CT pelvis: Diffuse metastatic disease in the sacral ala, iliac bones, acetabulae and ischia with lesser metastatic lesions in the subtrochanteric femoral shafts and intertrochanteric region. Few in the ischia as well. No acute fracture. Distal left colon and sigmoid with diverticulosis but no diverticulitis, colitis, stricture or mass. Small bowel loops in the pelvis unremarkable. Atherosclerotic calcifications iliac and femoral vessels without aneurysm. There is no ventral abdominal wall hernia.. The left inguinal canal is a mildly distended with omental fat but no bowel herniation of bladder well filled without wall thickening, mass, stone or layered debris distal ureters without dilatation or stone. Prostate has a few calcifications. It is not grossly enlarged. IMPRESSION: 1. 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 No fracture or destruction with soft tissue component. 2. Diffuse atherosclerotic calcifications aorta and iliac vessels without aneurysm. 3. Diffuse metastatic disease pattern in the liver. No ascites abdomen or pelvis. 4. Hyperdense bile representing inspissated secretions or non calcified stone. No biliary dilatation. 5. Small to moderate-sized hiatal hernia. 6. Colon, small bowel and appendix unremarkable. 7. No renal, ureteral or bladder stone. Few renal cysts and extrarenal pelvis on the right. Prostate not grossly enlarged. 8. Omental fat distending the left inguinal canal but no bowel herniation in either inguinal canal or ventral abdominal wall. <Electronically signed by Jairo Cardona > 07/23/21 [id number]
--- NOTE | 2021-07-23 12:44 | REP ---
INDICATION: MALIGNANT NEOPLASM OF PROSTATE. COMPARISON: None. TECHNIQUE/RADIOTRACER AND DOSE: After the intravenous administration of 21.8 mCi of technetium 99 M a total body bone scan was obtained. FINDINGS: There is abnormal focal activity in the 2nd, 5th, 7th, and 10th right ribs. There is abnormal focal activity in the 4th, 6th, and 8th left ribs. There is abnormal focal activity in multiple thoracic and lumbar vertebral bodies most notably L3, T12, and T5. There is focal activity in the left shoulder coracoid process. There is focal activity in the pelvis scattered diffusely. There is focal activity in the proximal right femur posteriorly and in the proximal left femur anteriorly. IMPRESSION: Multiple areas of abnormal focal activity as described above consistent with diffuse skeletal metastasis. <Electronically signed by Enrrique Urban > 07/23/21 [id number]
== END ==
LOC: M RAD 07:51
PROVIDERS: ATTEND General Practice
DX: C61 Malignant neoplasm of prostate (principal)
CPT/HCPCS: 71250; 74176; 78306; A9503

== ENCOUNTER 2021-08-27 20:27 | Inpatient (IN) | payer MEDICARE ==
[~2021-08-27] VITALS: Ht 175.3 cm; Wt 65.9 kg
[~2021-08-27 20:27] MED LIST changes: +DONE-1 PO; -DONETAB6 PO; -FURO20TA2; +FURO20TA2 PO; +LOSA100T45 PO; -LOSA100T50 PO; +MORP-69 PO; +OXYC-403 PO; -SPIR1TAB34; +SPIR1TAB34 PO
[2021-08-27] MEDS ORDERED: NS 500 ML IV ONE (20:50)
[2021-08-27] MEDS ORDERED: MELA10TA2 PO (21:05)
[2021-08-27] MEDS ORDERED: DEXA2TA PO (21:05)
[2021-08-27 21:20] LABS: BASO % 0.1 % (0.0-1.0); HEMATOCRIT 37.2 % (42.0-52.0); HEMOGLOBIN 12.5 g/dl (13.5-17.5); LYMPH # 0.8 10^3/uL (1.5-5.0); LYMPH % 9.5 % (24.0-44.0); MEAN CORPUSCULAR HEMOGLOBIN 32.8 pg (27.0-33.0); MEAN CORPUSCULAR HGB CONC 33.6 g/dl (32.0-36.5); MEAN CORPUSCULAR VOLUME 97.6 fl (80.0-96.0); MONO # 0.8 10^3/uL (0.0-0.8); MONO % 9.5 % (2.0-8.0); NEUTROPHILS # 6.9 10^3/uL (1.5-8.5); PLATELET COUNT, AUTOMATED 109 10^3/uL (150-450); RED BLOOD COUNT 3.81 10^6/uL (4.30-6.10); WHITE BLOOD COUNT 8.6 10^3/uL (4.0-10.0)
[2021-08-27 21:37] LABS: ALBUMIN 2.7 GM/DL (3.2-5.2); ALT/SGPT 188 U/L (12-78); BILIRUBIN,TOTAL 1.7 MG/DL (0.2-1.0); BLOOD UREA NITROGEN 22 MG/DL (7-18); CALCIUM LEVEL 9.3 MG/DL (8.8-10.2); CARBON DIOXIDE LEVEL 30 MEQ/L (21-32); CHLORIDE LEVEL 97 MEQ/L (98-107); CREATININE FOR GFR 1.25 MG/DL (0.70-1.30); ETHYL ALCOHOL (ETHANOL) < 0.003 % (0.000-0.010); FREE T4 1.76 NG/DL (0.76-1.46); GLOMERULAR FILTRATION RATE 58.3 (>35); GLUCOSE, FASTING 259 MG/DL (70-100); MAGNESIUM LEVEL 1.8 MG/DL (1.8-2.4); PHOSPHORUS LEVEL 2.7 MG/DL (2.5-4.9); SODIUM LEVEL 136 MEQ/L (136-145); TOTAL PROTEIN 5.8 GM/DL (6.4-8.2)
[2021-08-27] MEDS ORDERED: POTASSIUM CHLORIDE 10% LIQ 20 MEQ/15 ML UDC PO ONE (21:55)
[2021-08-27] MEDS ORDERED: LOSA50TA28 PO (22:58)
[2021-08-27] MEDS ORDERED: MIRT-60 PO (22:58)
[2021-08-27] MEDS ORDERED: TRAZ-257 PO (22:58)
[2021-08-27] MEDS ORDERED: VITA500064 PO (22:58)
[2021-08-27] MEDS ORDERED: AMLO1TAB24 PO (22:58)
[2021-08-27] MEDS ORDERED: D-50CAP PO (22:58)
[2021-08-27] MEDS ORDERED: RA M10TA PO (22:58)
[2021-08-27] MEDS ORDERED: HOME MED LIST COMPLETE! XX SCH (23:00)
[2021-08-28] VITALS (10 sets, daily range): BP systolic 77–124; BP diastolic 48–74; O2SAT 92–96
[2021-08-28] MEDS ORDERED: ACETAMINOPHEN TAB 650MG DOSE (2X325MG) PO PRN (00:35)
[2021-08-28 00:54] LABS: APPEARANCE, URINE CLEAR (CLEAR); BACTERIA, URINE AUTO NEGATIVE (NEGATIVE); BILIRUBIN, URINE AUTO NEGATIVE (NEGATIVE); BLOOD, URINE BLOOD 2+ (NEGATIVE); COLOR, URINE YELLOW (YELLOW); GLUCOSE, URINE (UA) AUTO NEGATIVE (NEGATIVE); KETONE, URINE AUTO NEGATIVE (NEGATIVE); LEUKOCYTE ESTERASE, URINE AUTO NEGATIVE (NEGATIVE); MUCUS, URINE SMALL (NEGATIVE); NITRITE, URINE AUTO NEGATIVE (NEGATIVE); PROTEIN, URINE AUTO 1+ mg/dL (NEGATIVE); RBC, URINE AUTO 102 /HPF (0-3); SPECIFIC GRAVITY URINE AUTO 1.023 (1.002-1.035); SQUAMOUS EPITHELIAL CELL UR AU 0 /HPF (0-6); WBC, URINE AUTO 1 /HPF (0-3)
[2021-08-28] MEDS ORDERED: NS 1,000 ML IV SCH ×3 (01:00→06:20)
[2021-08-28] MEDS ORDERED: GLUCAGON INJ 1MG VIAL SC PRN (01:05)
[2021-08-28] MEDS ORDERED: DEXTROSE 50% 50 ML SYRINGE IV PRN (01:05)
[2021-08-28] MEDS ORDERED: GLUCOSE 4GM CHEW TABLET PO PRN (01:05)
[2021-08-28] MEDS ORDERED: MORP-69 PO (01:33)
[2021-08-28] MEDS ORDERED: OXYC-517 PO (01:33)
[2021-08-28] MEDS: RAMELTEON 8 MG TAB (ROZEREM) PO SCH ×2 (01:42→20:26)
[2021-08-28] MEDS: HumaLOG INSULIN (NovoLOG) PER UNIT SC SCH ×5 (01:43→20:26)
[2021-08-28] MEDS ORDERED: oxyCODONE 5MG TAB PO PRN (02:10)
[2021-08-28] MEDS ORDERED: SODIUM CHLORIDE 0.9% 1000ML IV ONE (02:30)
[2021-08-28] MEDS: MORPHINE 15 MG SA TAB PO SCH ×2 (02:44→09:24)
[2021-08-28] MEDS: PIPERACILLIN/TAZOBACTAM SOD 3.375 GM in D5W MINI-BAG PLUS 50 ML IV SCH ×4 (02:44→20:25)
[2021-08-28] MEDS: HEPARIN SOD (PORCINE) 5000UNITS/ML 1ML VIAL/SYRINGE SC SCH ×2 (06:44→13:13)
[2021-08-28] MEDS ORDERED: VANCOMYCIN HCL 500 MG in D5W MINI-BAG PLUS 100 ML IV SCH (06:50)
[2021-08-28] MEDS ORDERED: VANCOMYCIN HCL 500 MG in D5W MINI-BAG PLUS 100 ML IV ONE (07:05)
[2021-08-28 08:21] LABS: HEMATOCRIT 29.1 % (42.0-52.0); LYMPH # 0.8 10^3/uL (1.5-5.0); LYMPH % 13.7 % (24.0-44.0); MEAN CORPUSCULAR HEMOGLOBIN 32.5 pg (27.0-33.0); MEAN CORPUSCULAR VOLUME 98.6 fl (80.0-96.0); MONO # 0.8 10^3/uL (0.0-0.8); MONO % 13.1 % (2.0-8.0); NEUTROPHILS # 4.2 10^3/uL (1.5-8.5); NEUTROPHILS % 72.2 % (36.0-66.0); RED BLOOD COUNT 2.95 10^6/uL (4.30-6.10); WHITE BLOOD COUNT 5.8 10^3/uL (4.0-10.0)
[2021-08-28 08:31] LABS: INR 1.64; PROTHROMBIN TIME 19.8 SECONDS (12.7-14.5)
[2021-08-28 08:32] LABS: PARTIAL THROMBOPLASTIN TIME 42.3 SECONDS (25.9-37.0)
[2021-08-28 08:57] LABS: HEMOGLOBIN 9.6 g/dl (13.5-17.5)
[2021-08-28 08:58] LABS: PLATELET COUNT, AUTOMATED 87 10^3/uL (150-450)
[2021-08-28] MEDS ORDERED: LOSARTAN 50MG TABLET PO SCH (09:00)
[2021-08-28] MEDS ORDERED: amLODIPine 5 MG TAB PO SCH (09:00)
[2021-08-28] MEDS ORDERED: SPIRONOLACTONE 25 MG TAB PO SCH (09:00)
[2021-08-28] MEDS ORDERED: FUROSEMIDE 20 MG TAB PO SCH (09:00)
[2021-08-28] MEDS ORDERED: TAMSULOSIN 0.4 MG CAP PO SCH (09:00)
[2021-08-28 09:09] LABS: ALT/SGPT 151 U/L (12-78); BLOOD UREA NITROGEN 25 MG/DL (7-18); CALCIUM LEVEL 7.7 MG/DL (8.8-10.2); CARBON DIOXIDE LEVEL 25 MEQ/L (21-32); CHLORIDE LEVEL 108 MEQ/L (98-107); CREATININE FOR GFR 1.03 MG/DL (0.70-1.30); GLOMERULAR FILTRATION RATE > 60.0 (>35); GLUCOSE, FASTING 174 MG/DL (70-100); POTASSIUM SERUM 2.9 MEQ/L (3.5-5.1); SODIUM LEVEL 141 MEQ/L (136-145); TOTAL PROTEIN 4.8 GM/DL (6.4-8.2)
[2021-08-28] MEDS: POTASSIUM CHLORIDE 10% LIQ 20 MEQ/15 ML UDC PO ONE ×2 (09:25→16:27)
[2021-08-28] MEDS ORDERED: NS 500 ML IV ONE ×3 (10:00→19:00)
[2021-08-28] MEDS ORDERED: VANCOMYCIN HCL 750 MG, VIAL MATE ADAPTER 1 EACH in NS 250 ML IV ONE (12:00)
[2021-08-28 14:00] LABS: BASO % 0.1 % (0.0-1.0); HEMATOCRIT 31.4 % (42.0-52.0); HEMOGLOBIN 10.1 g/dl (13.5-17.5); LYMPH # 1.6 10^3/uL (1.5-5.0); LYMPH % 21.2 % (24.0-44.0); MEAN CORPUSCULAR HEMOGLOBIN 32.3 pg (27.0-33.0); MEAN CORPUSCULAR HGB CONC 32.2 g/dl (32.0-36.5); MEAN CORPUSCULAR VOLUME 100.3 fl (80.0-96.0); MONO % 13.5 % (2.0-8.0); NEUTROPHILS # 4.8 10^3/uL (1.5-8.5); NEUTROPHILS % 64.8 % (36.0-66.0); PLATELET COUNT, AUTOMATED 102 10^3/uL (150-450); RED BLOOD COUNT 3.13 10^6/uL (4.30-6.10); WHITE BLOOD COUNT 7.4 10^3/uL (4.0-10.0)
[2021-08-28 14:43] LABS: BLOOD UREA NITROGEN 28 MG/DL (7-18); CALCIUM LEVEL 7.7 MG/DL (8.8-10.2); CARBON DIOXIDE LEVEL 25 MEQ/L (21-32); CHLORIDE LEVEL 109 MEQ/L (98-107); CREATININE FOR GFR 1.07 MG/DL (0.70-1.30); FERRITIN 4901 NG/ML (26-388); GLOMERULAR FILTRATION RATE > 60.0 (>35); GLUCOSE, FASTING 98 MG/DL (70-100); IRON (FE) 40 UG/DL (65-175); LDH LACTATE DEHYDROGENASE 1661 U/L (87-241); PERCENT SATURATION 19.8 % (19.7-50.0); POTASSIUM SERUM 3.3 MEQ/L (3.5-5.1); SODIUM LEVEL 141 MEQ/L (136-145); TOTAL IRON BINDING CAPACITY 202 UG/DL (250-450)
[2021-08-28] MEDS ORDERED: KCL 20MEQ IN D5/0.45NS 1000ML 1,000 ML IV SCH (15:30)
[2021-08-28] MEDS ORDERED: HYDROmorphone 2 MG TAB PO PRN (18:50)
[2021-08-28 19:35] LABS: HEMATOCRIT 29.1 % (42.0-52.0); HEMOGLOBIN 9.4 g/dl (13.5-17.5); MEAN CORPUSCULAR HEMOGLOBIN 32.8 pg (27.0-33.0); MEAN CORPUSCULAR HGB CONC 32.3 g/dl (32.0-36.5); MEAN CORPUSCULAR VOLUME 101.4 fl (80.0-96.0); RED BLOOD COUNT 2.87 10^6/uL (4.30-6.10); WHITE BLOOD COUNT 4.5 10^3/uL (4.0-10.0)
[2021-08-28 19:51] LABS: BLOOD UREA NITROGEN 29 MG/DL (7-18); CALCIUM LEVEL 7.2 MG/DL (8.8-10.2); CARBON DIOXIDE LEVEL 24 MEQ/L (21-32); CHLORIDE LEVEL 109 MEQ/L (98-107); CREATININE FOR GFR 1.09 MG/DL (0.70-1.30); GLOMERULAR FILTRATION RATE > 60.0 (>35); GLUCOSE, FASTING 117 MG/DL (70-100); POTASSIUM SERUM 3.1 MEQ/L (3.5-5.1); SODIUM LEVEL 142 MEQ/L (136-145)
[2021-08-28 19:57] LABS: PLATELET COUNT, AUTOMATED 84 10^3/uL (150-450)
[2021-08-28] MEDS ORDERED: VANCOMYCIN HCL 750 MG, VIAL MATE ADAPTER 1 EACH in NS 250 ML IV SCH (21:00)
[2021-08-28] MEDS: ACETAMINOPHEN 650 MG SUPP PR PRN (22:59)
[2021-08-29] VITALS (70 sets, daily range): BP systolic 63–131; BP diastolic 38–104; O2SAT 94
[2021-08-29] MEDS ORDERED: NS 1,000 ML IV SCH (00:50)
[2021-08-29] MEDS: PIPERACILLIN/TAZOBACTAM SOD 3.375 GM in D5W MINI-BAG PLUS 50 ML IV SCH ×4 (02:10→21:03)
[2021-08-29 03:27] LABS: BASO % 0.2 % (0.0-1.0); EOS % 0.2 % (0.0-3.0); HEMATOCRIT 26.3 % (42.0-52.0); HEMOGLOBIN 8.6 g/dl (13.5-17.5); LYMPH # 0.7 10^3/uL (1.5-5.0); MEAN CORPUSCULAR HGB CONC 32.7 g/dl (32.0-36.5); MEAN CORPUSCULAR VOLUME 100.8 fl (80.0-96.0); MONO # 0.4 10^3/uL (0.0-0.8); NEUTROPHILS # 3.3 10^3/uL (1.5-8.5); NEUTROPHILS % 74.4 % (36.0-66.0); RED BLOOD COUNT 2.61 10^6/uL (4.30-6.10); WHITE BLOOD COUNT 4.4 10^3/uL (4.0-10.0)
[2021-08-29 03:28] LABS: PLATELET COUNT, AUTOMATED 84 10^3/uL (150-450)
[2021-08-29 03:41] LABS: MAGNESIUM LEVEL 1.6 MG/DL (1.8-2.4); POTASSIUM SERUM 3.5 MEQ/L (3.5-5.1)
[2021-08-29] MEDS: ACETAMINOPHEN 650 MG SUPP PR PRN ×3 (03:57→12:14)
[2021-08-29 06:24] LABS: HEMATOCRIT 22.8 % (42.0-52.0); HEMOGLOBIN 7.6 g/dl (13.5-17.5); MEAN CORPUSCULAR HEMOGLOBIN 32.8 pg (27.0-33.0); MEAN CORPUSCULAR HGB CONC 33.3 g/dl (32.0-36.5); MEAN CORPUSCULAR VOLUME 98.3 fl (80.0-96.0); RED BLOOD COUNT 2.32 10^6/uL (4.30-6.10)
[2021-08-29 06:25] LABS: PLATELET COUNT, AUTOMATED 79 10^3/uL (150-450)
[2021-08-29 07:01] LABS: ERYTHROCYTE SEDIMENTATION RATE 65 mm/hr (0-20)
[2021-08-29] MEDS ORDERED: NS 500 ML IV ONE (08:00)
[2021-08-29 08:01] LABS: ALT/SGPT 127 U/L (12-78); BILIRUBIN,DIRECT 1.1 MG/DL (0.0-0.2); BILIRUBIN,TOTAL 1.5 MG/DL (0.2-1.0); BLOOD UREA NITROGEN 35 MG/DL (7-18); CALCIUM LEVEL 6.3 MG/DL (8.8-10.2); CARBON DIOXIDE LEVEL 21 MEQ/L (21-32); CHLORIDE LEVEL 112 MEQ/L (98-107); GLOMERULAR FILTRATION RATE 51.2 (>35); GLUCOSE, FASTING 144 MG/DL (70-100); MAGNESIUM LEVEL 1.6 MG/DL (1.8-2.4); SODIUM LEVEL 143 MEQ/L (136-145); TOTAL PROTEIN 3.9 GM/DL (6.4-8.2)
[2021-08-29 08:29] LABS: ALBUMIN 1.5 GM/DL (3.2-5.2); POTASSIUM SERUM 2.8 MEQ/L (3.5-5.1)
[2021-08-29] MEDS: HumaLOG INSULIN (NovoLOG) PER UNIT SC SCH ×2 (08:44→18:45)
[2021-08-29] MEDS ORDERED: OMEPRAZOLE 20MG CAP PO SCH (09:00)
[2021-08-29 09:51] LABS: ABG BASE EXCESS -4.1 (-2.0-2.0); ABG HCO3 18.7 MEQ/L (22.0-26.0); ABG O2 SATURATION 95.5 % (95.0-99.0); ABG PARTIAL PRESSURE CO2 26.2 mmHg (35.0-45.0); ABG PARTIAL PRESSURE O2 81.3 mmHg (75.0-100.0); ABG TOTAL CO2 19.5 MEQ/L (23.0-31.0); ABG pH (ARTERIAL) 7.472 UNITS (7.350-7.450)
[2021-08-29] MEDS: KCL 40MEQ IN D5/0.45NS 1000ML 1,000 ML IV SCH ×2 (10:06→17:05)
[2021-08-29] MEDS ORDERED: VANCOMYCIN HCL 1,000 MG, VIAL MATE ADAPTER 1 EACH in NS 250 ML IV SCH (11:00)
[2021-08-29] MEDS ORDERED: LR 1,000 ML IV ONE (11:05)
[2021-08-29] MEDS: MAG SULF 1GM/100ML (MAG RUN) 1 GM in IV 1 EA IV SCH ×2 (12:00→13:49)
[2021-08-29] MEDS: KCL 10MEQ/100ML SWI (KRUN) 10 MEQ in IV 1 EA IV SCH ×2 (12:14→13:48)
[2021-08-29] MEDS ORDERED: NOREPINEPHRINE 4 MG/4 ML AMP As Ordered ONE (14:41)
[2021-08-29] MEDS: NOREPINEPHRINE BITARTRATE 8 MG in D5W 492 ML IV SCH (14:56)
[2021-08-29 15:44] LABS: HEMATOCRIT 25.4 % (42.0-52.0); HEMOGLOBIN 8.3 g/dl (13.5-17.5); MEAN CORPUSCULAR HEMOGLOBIN 31.6 pg (27.0-33.0); MEAN CORPUSCULAR HGB CONC 32.7 g/dl (32.0-36.5); MEAN CORPUSCULAR VOLUME 96.6 fl (80.0-96.0); RED BLOOD COUNT 2.63 10^6/uL (4.30-6.10); WHITE BLOOD COUNT 4.7 10^3/uL (4.0-10.0)
[2021-08-29 15:45] LABS: PLATELET COUNT, AUTOMATED 89 10^3/uL (150-450)
[2021-08-29 16:05] LABS: ANISOCYTOSIS 1+; LYMPHOCYTES 11 % (16-44); MONOCYTES 4 % (0-5); NEUTROPHILS 83 % (28-66); PLATELET ESTIMATE DECREASED (NORMAL)
[2021-08-29 16:10] LABS: CALCIUM LEVEL 6.5 MG/DL (8.8-10.2); CREATININE FOR GFR 1.65 MG/DL (0.70-1.30); GLOMERULAR FILTRATION RATE 42.3 (>35); MAGNESIUM LEVEL 2.4 MG/DL (1.8-2.4); POTASSIUM SERUM 3.3 MEQ/L (3.5-5.1)
[2021-08-29] MEDS ORDERED: HYDROMORPHONE HCL 0.5 MG/ 0.5 ML SYRINGE (J1170 PER 1) IV PRN ×2 (17:15)
[2021-08-29] MEDS ORDERED: KCL 20MEQ IN 100ML SWI (KRUN) 20 MEQ in IV 1 EA IV ONE ×2 (18:00)
[2021-08-29] MEDS: HYDROCORTISONE 100 MG/2 ML VIAL (J1720 PER 1) IV SCH (18:44)
[2021-08-29] MEDS: NS 1,000 ML IV SCH (18:45)
[2021-08-29 22:24] LABS: BASO % 0.1 % (0.0-1.0); EOS % 0.3 % (0.0-3.0); HEMATOCRIT 30.6 % (42.0-52.0); LYMPH # 0.5 10^3/uL (1.5-5.0); LYMPH % 6.3 % (24.0-44.0); MEAN CORPUSCULAR HEMOGLOBIN 31.5 pg (27.0-33.0); MEAN CORPUSCULAR HGB CONC 32.7 g/dl (32.0-36.5); MEAN CORPUSCULAR VOLUME 96.5 fl (80.0-96.0); MONO # 0.7 10^3/uL (0.0-0.8); MONO % 8.7 % (2.0-8.0); NEUTROPHILS # 6.6 10^3/uL (1.5-8.5); PLATELET COUNT, AUTOMATED 119 10^3/uL (150-450); RED BLOOD COUNT 3.17 10^6/uL (4.30-6.10); WHITE BLOOD COUNT 7.9 10^3/uL (4.0-10.0)
[2021-08-29 22:49] LABS: CALCIUM LEVEL 6.5 MG/DL (8.8-10.2); CREATININE FOR GFR 1.6 MG/DL (0.70-1.30); GLOMERULAR FILTRATION RATE 43.8 (>35); POTASSIUM SERUM 3.8 MEQ/L (3.5-5.1)
[2021-08-29 23:55] LABS: MAGNESIUM LEVEL 2.2 MG/DL (1.8-2.4)
[2021-08-30] VITALS (80 sets, daily range): BP systolic 88–146; BP diastolic 53–85
[2021-08-30] MEDS: HumaLOG INSULIN (NovoLOG) PER UNIT SC SCH ×5 (00:07→20:12)
[2021-08-30] MEDS: HYDROCORTISONE 100 MG/2 ML VIAL (J1720 PER 1) IV SCH ×3 (01:45→17:45)
[2021-08-30] MEDS: PIPERACILLIN/TAZOBACTAM SOD 3.375 GM in D5W MINI-BAG PLUS 50 ML IV SCH ×4 (01:45→19:53)
[2021-08-30] MEDS: NS 1,000 ML IV SCH ×2 (03:17→12:18)
[2021-08-30] MEDS: NOREPINEPHRINE BITARTRATE 8 MG in D5W 492 ML IV SCH (04:29)
[2021-08-30 05:54] LABS: BASO % 0.1 % (0.0-1.0); HEMATOCRIT 30.7 % (42.0-52.0); HEMOGLOBIN 10.2 g/dl (13.5-17.5); LYMPH # 0.5 10^3/uL (1.5-5.0); LYMPH % 5.6 % (24.0-44.0); MEAN CORPUSCULAR HEMOGLOBIN 31.7 pg (27.0-33.0); MEAN CORPUSCULAR HGB CONC 33.2 g/dl (32.0-36.5); MEAN CORPUSCULAR VOLUME 95.3 fl (80.0-96.0); MONO # 0.6 10^3/uL (0.0-0.8); MONO % 6.6 % (2.0-8.0); NEUTROPHILS # 8.3 10^3/uL (1.5-8.5); NEUTROPHILS % 86.9 % (36.0-66.0); PLATELET COUNT, AUTOMATED 140 10^3/uL (150-450); RED BLOOD COUNT 3.22 10^6/uL (4.30-6.10); WHITE BLOOD COUNT 9.5 10^3/uL (4.0-10.0)
[2021-08-30 06:20] LABS: ALBUMIN 1.5 GM/DL (3.2-5.2); BILIRUBIN,TOTAL 1.7 MG/DL (0.2-1.0); CALCIUM LEVEL 6.3 MG/DL (8.8-10.2); CREATININE FOR GFR 1.46 MG/DL (0.70-1.30); GLOMERULAR FILTRATION RATE 48.7 (>35); POTASSIUM SERUM 3.8 MEQ/L (3.5-5.1); TOTAL PROTEIN 3.9 GM/DL (6.4-8.2)
[2021-08-30] MEDS ORDERED: NOREPINEPHRINE BITARTRATE 16 MG in D5W 484 ML IV SCH ×2 (08:35→11:00)
[2021-08-30] MEDS ORDERED: NOREPINEPHRINE BITARTRATE 8 MG in D5W 484 ML IV SCH (08:48)
[2021-08-30] MEDS ORDERED: FUROSEMIDE 40MG/4ML VIAL (J1940) IV SCH (09:00)
[2021-08-30 10:36] LABS: HEPATITIS B SURFACE ANTIGEN NEGATIVE (NEGATIVE)
[2021-08-30 11:03] LABS: HEPATITIS B CORE ANTIBODY IGM NEGATIVE (NEGATIVE); HEPATITIS C VIRUS ABY INDEX 0.1 INDEX (<0.8)
[2021-08-30] MEDS: VANCOMYCIN HCL 750 MG, VIAL MATE ADAPTER 1 EACH in NS 250 ML IV SCH (12:16)
[2021-08-30] MEDS: FUROSEMIDE 40MG/4ML VIAL (J1940) IV SCH ×2 (12:18→17:45)
[2021-08-30 19:09] LABS: BASO % 0.2 % (0.0-1.0); HEMATOCRIT 33.9 % (42.0-52.0); HEMOGLOBIN 11.3 g/dl (13.5-17.5); LYMPH # 0.9 10^3/uL (1.5-5.0); LYMPH % 8.2 % (24.0-44.0); MEAN CORPUSCULAR HEMOGLOBIN 31.3 pg (27.0-33.0); MEAN CORPUSCULAR HGB CONC 33.3 g/dl (32.0-36.5); MEAN CORPUSCULAR VOLUME 93.9 fl (80.0-96.0); MONO # 0.7 10^3/uL (0.0-0.8); MONO % 5.8 % (2.0-8.0); NEUTROPHILS # 9.6 10^3/uL (1.5-8.5); NEUTROPHILS % 84.6 % (36.0-66.0); PLATELET COUNT, AUTOMATED 171 10^3/uL (150-450); RED BLOOD COUNT 3.61 10^6/uL (4.30-6.10); WHITE BLOOD COUNT 11.3 10^3/uL (4.0-10.0)
[2021-08-30] MEDS: PANTOPRAZOLE 40MG VIAL (C9113 PER 1) IV SCH (22:05)
[2021-08-31] VITALS (18 sets, daily range): BP systolic 104–136; BP diastolic 59–90
[2021-08-31] MEDS: HYDROCORTISONE 100 MG/2 ML VIAL (J1720 PER 1) IV SCH ×3 (01:32→17:58)
[2021-08-31] MEDS: PIPERACILLIN/TAZOBACTAM SOD 3.375 GM in D5W MINI-BAG PLUS 50 ML IV SCH ×2 (01:32→08:11)
[2021-08-31 04:42] LABS: BASO % 0.1 % (0.0-1.0); HEMATOCRIT 30.4 % (42.0-52.0); HEMOGLOBIN 10.3 g/dl (13.5-17.5); LYMPH # 0.9 10^3/uL (1.5-5.0); LYMPH % 9.2 % (24.0-44.0); MEAN CORPUSCULAR HEMOGLOBIN 31.8 pg (27.0-33.0); MEAN CORPUSCULAR HGB CONC 33.9 g/dl (32.0-36.5); MEAN CORPUSCULAR VOLUME 93.8 fl (80.0-96.0); MONO # 0.6 10^3/uL (0.0-0.8); MONO % 6.8 % (2.0-8.0); NEUTROPHILS # 7.8 10^3/uL (1.5-8.5); NEUTROPHILS % 82.4 % (36.0-66.0); PLATELET COUNT, AUTOMATED 131 10^3/uL (150-450); RED BLOOD COUNT 3.24 10^6/uL (4.30-6.10); WHITE BLOOD COUNT 9.5 10^3/uL (4.0-10.0)
[2021-08-31 05:18] LABS: ALBUMIN 1.5 GM/DL (3.2-5.2); BILIRUBIN,TOTAL 1.1 MG/DL (0.2-1.0); CALCIUM LEVEL 6.1 MG/DL (8.8-10.2); CREATININE FOR GFR 1.53 MG/DL (0.70-1.30); GLOMERULAR FILTRATION RATE 46.2 (>35); POTASSIUM SERUM 3.4 MEQ/L (3.5-5.1)
[2021-08-31] MEDS ORDERED: POTASSIUM CHLORIDE 10% LIQ 20 MEQ/15 ML UDC PO ONE (05:40)
[2021-08-31] MEDS ORDERED: MIDODRINE 5 MG TAB PO SCH (08:00)
[2021-08-31] MEDS ORDERED: POTASSIUM CHLORIDE 10MEQ SR TABLET PO ONE (08:00)
[2021-08-31] MEDS: FUROSEMIDE 40MG/4ML VIAL (J1940) IV SCH ×2 (08:11→17:59)
[2021-08-31] MEDS: HumaLOG INSULIN (NovoLOG) PER UNIT SC SCH ×4 (08:11→21:00)
[2021-08-31] MEDS ORDERED: ALPRAZolam 0.25 MG TAB PO ONE (12:15)
[2021-08-31] MEDS ORDERED: PILL CUTTER 1 EACH XX PRN (12:25)
[2021-08-31] MEDS: VANCOMYCIN HCL 750 MG, VIAL MATE ADAPTER 1 EACH in NS 250 ML IV SCH (12:48)
[2021-08-31] MEDS ORDERED: AMPICILLIN SOD/SULBACTAM SOD 1.5 GM in D5W MINI-BAG PLUS 50 ML IV SCH (15:00)
[2021-08-31] MEDS ORDERED: traZODone 25MG PER 1/2 TABLET PO PRN (16:25)
[2021-08-31] MEDS: AMPICILLIN SOD/SULBACTAM SOD 1.5 GM in D5W MINI-BAG PLUS 50 ML IV SCH ×2 (17:58→22:32)
[2021-08-31] MEDS ORDERED: ALPRAZolam 0.25 MG TAB PO PRN (19:15)
[2021-08-31] MEDS ORDERED: MEMANTINE 5MG TABLET (NAMENDA) PO SCH (21:00)
[2021-08-31] MEDS ORDERED: traZODone 100 MG TAB PO SCH (21:00)
[2021-08-31] MEDS: PANTOPRAZOLE 40MG VIAL (C9113 PER 1) IV SCH (22:31)
[2021-09-01] MEDS: HYDROCORTISONE 100 MG/2 ML VIAL (J1720 PER 1) IV SCH ×2 (04:29→10:01)
[2021-09-01] MEDS: AMPICILLIN SOD/SULBACTAM SOD 1.5 GM in D5W MINI-BAG PLUS 50 ML IV SCH ×2 (04:29→10:00)
[2021-09-01 05:50] LABS: BASO % 0.4 % (0.0-1.0); HEMATOCRIT 32.5 % (42.0-52.0); HEMOGLOBIN 10.8 g/dl (13.5-17.5); LYMPH # 1.2 10^3/uL (1.5-5.0); LYMPH % 11.1 % (24.0-44.0); MEAN CORPUSCULAR HEMOGLOBIN 31.2 pg (27.0-33.0); MEAN CORPUSCULAR HGB CONC 33.2 g/dl (32.0-36.5); MEAN CORPUSCULAR VOLUME 93.9 fl (80.0-96.0); MONO % 8.9 % (2.0-8.0); NEUTROPHILS # 8.1 10^3/uL (1.5-8.5); NEUTROPHILS % 73.5 % (36.0-66.0); PLATELET COUNT, AUTOMATED 182 10^3/uL (150-450); RED BLOOD COUNT 3.46 10^6/uL (4.30-6.10); WHITE BLOOD COUNT 11.1 10^3/uL (4.0-10.0)
[2021-09-01 06:39] LABS: ALBUMIN 1.8 GM/DL (3.2-5.2); BILIRUBIN,TOTAL 1.3 MG/DL (0.2-1.0); CALCIUM LEVEL 6.4 MG/DL (8.8-10.2); CREATININE FOR GFR 1.75 MG/DL (0.70-1.30); GLOMERULAR FILTRATION RATE 39.5 (>35); POTASSIUM SERUM 2.6 MEQ/L (3.5-5.1); TOTAL PROTEIN 4.7 GM/DL (6.4-8.2)
[2021-09-01] MEDS ORDERED: POTASSIUM CHLORIDE 10MEQ SR TABLET PO ONE (08:00)
[2021-09-01 08:14] LABS: MAGNESIUM LEVEL 2.3 MG/DL (1.8-2.4); PHOSPHORUS LEVEL 3.3 MG/DL (2.5-4.9)
[2021-09-01] MEDS: FUROSEMIDE 40MG/4ML VIAL (J1940) IV SCH (10:01)
[2021-09-01] MEDS: HumaLOG INSULIN (NovoLOG) PER UNIT SC SCH (10:01)
[2021-09-01] MEDS ORDERED: ATROPINE SULFATE 1% OP SOLN 2 ML BTL SL PRN (11:30)
[2021-09-01] MEDS ORDERED: ONDANSETRON 4 MG ORAL DISINTEGRATING TAB PO PRN (11:30)
[2021-09-01] MEDS ORDERED: HYOSCYAMINE SULFATE 0.125 MG SUBL TABLET PO PRN (11:30)
[2021-09-01] MEDS ORDERED: HYOS125TA PO (12:20)
[2021-09-01] MEDS ORDERED: TRAN1DIS4 TOP (12:20)
[2021-09-01] MEDS ORDERED: MORP1SOL5 PO (12:20)
[2021-09-01] MEDS ORDERED: ATIV1TAB10 PO (12:20)
[2021-09-01] MEDS: MORPHINE 10MG/0.5ML ORAL CONCENTRATE SOLUTION U/D SL PRN ×2 (14:34→22:55)
[2021-09-01] MEDS: LORazepam 1 MG TAB PO PRN ×2 (14:34→22:55)
[2021-09-02] MEDS: LORazepam 1 MG TAB PO PRN (10:33)
[2021-09-02] MEDS: MORPHINE 10MG/0.5ML ORAL CONCENTRATE SOLUTION U/D SL PRN (10:34)
== END 2021-09-02 13:31 | disposition hospice, home (50) | DRG 441 ==
LOC: M ED 20:27 → M ED INP 23:53 → ENRESERV 08-28 00:09 → M MSPAV 08-28 00:57 → M PCU 08-29 11:49 → M MSPAV 08-31 14:44
PROVIDERS: ADMIT Family Medicine; ATTEND General Practice
PROC: 30233N1 Transfusion of Nonautologous Red Blood Cells into Peripheral Vein, Percutaneous Approach (ICD-10-PCS; principal; 2021-08-29)
DX: B15.9 Hepatitis A without hepatic coma (principal); K72.00 Acute and subacute hepatic failure without coma; G92.8 Other toxic encephalopathy; C79.51 Secondary malignant neoplasm of bone; C78.7 Secondary malignant neoplasm of liver and intrahepatic bile duct; R57.9 Shock, unspecified; N39.0 Urinary tract infection, site not specified; E87.2 Acidosis; D62 Acute posthemorrhagic anemia; R41.82 Altered mental status, unspecified; R94.31 Abnormal electrocardiogram [ECG] [EKG]; E87.6 Hypokalemia; I10 Essential (primary) hypertension; Z51.5 Encounter for palliative care; Z66 Do not resuscitate; C61 Malignant neoplasm of prostate; R31.0 Gross hematuria; D63.8 Anemia in other chronic diseases classified elsewhere; G30.9 Alzheimer's disease, unspecified; K21.9 Gastro-esophageal reflux disease without esophagitis; B95.2 Enterococcus as the cause of diseases classified elsewhere; R74.01 Elevation of levels of liver transaminase levels; F02.80 Dementia in other diseases classified elsewhere, unspecified severity, without behavioral disturbance, psychotic disturbance, mood disturbance, and anxiety; R33.9 Retention of urine, unspecified; E11.9 Type 2 diabetes mellitus without complications; M19.011 Primary osteoarthritis, right shoulder; Z92.3 Personal history of irradiation; Z92.21 Personal history of antineoplastic chemotherapy; Z85.828 Personal history of other malignant neoplasm of skin; Z86.010 Personal history of colon polyps; Z79.891 Long term (current) use of opiate analgesic; Z79.899 Other long term (current) drug therapy